=== PATIENT | female | born 1950 | race Caucasian/White ===

== ENCOUNTER → 2020-04-09 09:42 | Outpatient (CLI) | payer OTHER, SELFPAY ==
[2020-04-09 10:36] LABS: COVID19 -Nasal RAPID Negative (Negative)
== END ==
PROVIDERS: PCP Family Medicine; Visit Provider Nurse Practitioner Family
DX: Z20.822 Contact with and (suspected) exposure to COVID-19 (principal)
CPT/HCPCS: 87635

== ENCOUNTER 2020-04-10 06:04 | Inpatient (IN) | payer OTHER, SELFPAY ==
[2020-04-10] VITALS (22 sets, daily range): BP systolic 115–170; BP diastolic 49–85; PULSE 72–89; RESP 12–26; TEMP 36.2–37.7; O2SAT 91–98; BMI 46.0
--- NOTE | 2020-04-10 06:37 | DI.RAD.S_ITS ---
PROCEDURE: XR SHOULDER RT MIN 2V INDICATIONS: post op films TECHNIQUE: 2 views of the shoulder were acquired. COMPARISON: [facility], CT, CT SHOULDER RIGHT WITHOUT CONTRAST, 02/21/2020, 15:25. FINDINGS: Bones: Expected alignment status post placement of right shoulder arthroplasty. No periprosthetic fractures or evidence of loosening/infection. Mild acromioclavicular joint degeneration redemonstrated. Soft tissues: No suspicious soft tissue calcifications. IMPRESSION: Expected immediate postoperative appearance and alignment of right shoulder arthroplasty. Dictated by: Bjorn JOHNSON Interpreted: Remington Morgan MD on 04/10/2020 at 11:01 Approved by: Remington Morgan M.D. on 04/10/2020 at 12:23
[2020-04-10] MEDS: LACTATED RINGERS 1,000 ML 42 ML IV (07:20)
[2020-04-10] MEDS: VANCOMYCIN 1,000 MG/200 ML PIGGYBACK 200 MG IV ×2 (07:25→23:39)
[2020-04-10] MEDS: ACETAMINOPHEN 325 MG TABLET 975 MG PO ×2 (07:35→20:24)
--- NOTE | 2020-04-10 07:37 | PM.PREOP ---
Pre-operative Note COVID-19 COVID-19 status: Negative Result date/Date tested (Pos, Neg/Pending): 04/07/20 Interval Note History & Physical reviewed/Exam performed by Physician: Yes Changes to H&P: No
[2020-04-10] MEDS: MIDAZOLAM 2 MG/2 ML VIAL IV (07:48)
--- NOTE | 2020-04-10 07:56 | SUR.PREOP ---
Block start time [0745] . Monitoring initiated and maintained throughout procedure. Oxygen and medications given per anesthesiologist instructions. Patient remained stable throughout procedure, no adverse reactions noted. Block end time [0752].
[2020-04-10] MEDS: GENTAMICIN 200 MG in SODIUM CHLORIDE 0.9% 100 ML 105 ML IV (08:20)
--- NOTE | 2020-04-10 08:32 | SUR.OPER ---
Beach chair with Skytron shoulder positioner. Lower body on padded OR bed. Head in foam padded head cradle, secured with straps. Non-operative arm secured <90 degrees abduction. Pillow under knees. Safety belt at thigh. Cloth tape over blanket over lower legs.
[2020-04-10] MEDS: LIDOCAINE 1% W/EPI 20 ML INJ (08:38)
[2020-04-10] MEDS: BUPIVACAINE 0.25% W/ EPI 30 ML VIAL INJ (09:55)
--- NOTE | 2020-04-10 10:12 | PM.OP.1 ---
Operative Date/Time/Diagnoses Date of procedure: 04/10/20 Time of procedure: 08:00 Pre-op diagnosis: Right glenohumeral joint end-stage arthritis Post-op diagnosis: same Procedure & Clinicians Procedure: Right total shoulder arthroplasty Same procedure as scheduled: Yes Indications: Right glenohumeral joint end-stage arthritis Surgeon: Sam Orellana Model Maker Apprentice: Zakiya Hinton Click Yes if Unassisted: No Anesthesia Type: General and Peripheral nerve block Operative Notes Findings: End-stage arthritic changes to the glenohumeral joint with significant large osteophytes particularly anteriorly and inferiorly. Anterior osteophytes were blocking range of motion and locking external rotation. More significant arthritic changes to the humeral head than the glenoid. No sign of any rotator cuff tears. Closure Type: primary Specimen(s): none sent Applied: implant(s) (Arthrex 8 mm stem with a large glenoid and a 52 x 20 humeral head) Estimated Blood Loss (mL): 100 Blood products transfused: none Procedure in detail: On date of service, Patient was met in the holding area. The operative site was signed and witnessed by the OR staff. The surgeries once again discussed with the patient and any remaining questions they had were answered fully. Patient was taken back to the operating theater and placed on the operating table in a supine position. Great care was taken to ensure that all bony prominences were properly padded. Patient was then placed into the beach chair position. The head and neck were properly positioned and secured. A timeout was performed verifying patient's name, procedure, and the operative site. The upper extremity was then prepped and draped in the normal sterile fashion. Previously, the bony anatomy and incision were marked out as well as injected with Marcaine with epinephrine. A deltopectoral approach was performed. 10 blade was used to incise the skin and fascial tissue. A deep knife was used to continue sharp dissection until the cephalic vein was visualized. The cephalic vein was dissected free allowing us to expose the deltopectoral interval. This interval was then developed. A Ramirez elevator was used to free up the deltoid of any scarring both superficially as well as deeply. The vein and the deltoid were taken laterally while the pectoralis was taken medially. This gave us good visualization of the strap muscles. The clavipectoral fascia was removed and the strap muscles were then retracted medially with the pectoralis. This gave us stabilization of the subscapularis. The circumflex vessels were ligated and the subscapularis was sharply excised off the lesser tuberosity and then tagged. Once the subscapularis was released we're able to dislocate the shoulder. Patient had end-stage arthritic changes to the humeral head as well as the glenoid with large osteophytes anterior inferiorly as well as posteriorly. A Ronger was then used to remove the osteophytes. Next, cutting guide was placed and a saw was used to remove the humeral head. Once the head was removed it was templated. A starting awl was then used to find the canal and then the humerus was reamed and broached. Trial stem was placed and a variety of heads were trialed. A protector placed for the osteotomy was then placed and and we turned our attention back to the subscapularis as well as the glenoid. The subscapularis was freed up and a 360? fashion. The degenerative anterior and inferior capsular tissue was removed. This was followed by removing the degenerative labral tissue from around the glenoid as well as the biceps insertion. This gave us good visualization of the glenoid. Glenoid trials were used until we found the appropriate fit and curvature. Next the center hole was drilled followed by reaming of the glenoid. The wound was copiously irrigated after reaming. Next the pegs were drilled and a trial glenoid was impacted into place. Once we were satisfied with the preparation of the glenoid, the final component was cemented into place. This was followed by impaction. We Return to our attention back to the humerus. The protector plate was removed and heads were trialed once again and so we found the appropriate fit. The trials were removed and bone tunnels were made into the humeral neck. #2 FiberWire were passed through the bone tunnels for eventual subscapularis repair. The final stem and head were impacted into place and the shoulder was reduced. It was taken through range of motion and was felt to be stable in both posterior translation as well as external and internal rotation with abduction. The subscapularis was repaired back to the lesser tuberosity through the bone tunnels. This was then reinforced with soft tissue repair. Part of the rotator interval was then closed. A drain was placed and the rest of the wound was closed in a layered fashion. The shoulder was then cleaned dried and dressed and the patient was taken to the PACU in stable condition. Patient will follow our postoperative protocol for total shoulder arthroplasty. Complications: none Post-operative Condition: stable Disposition: PACU Plan for aftercare: Patient follow-up postoperative protocol for total shoulder arthroplasty
[2020-04-10] MEDS: OXYCODONE IR 5 MG TABLET PO ×4 (10:48→21:21)
[2020-04-10] MEDS: hydrOXYzine 50 MG/ML INJ 25 MG IM (10:49)
[2020-04-10] MEDS: INSULIN REGULAR 100 UNIT/ML 3 ML VIAL SUBCUT (11:43)
[2020-04-10] MEDS: METOCLOPRAMIDE 10 MG/2 ML INJ IV (12:13)
[2020-04-10] MEDS: LACTATED RINGERS 1,000 ML 125 ML IV (12:13)
[2020-04-10] MEDS: HYDROMORPHONE 0.5 MG INJ 0.2 MG IV ×2 (12:41→20:43)
--- NOTE | 2020-04-10 13:40 | PC.NURSE ---
Patient to room at 1200, alert, oriented rates pain to right shoulder 5/10, given 0.2mg IVP Dilaudid. CMS+ to RUE, sling in place, hemovac compressed. Patient also c/o nausea, no emesis. Given 10mg IVP Reglan. One person assist to BSC, gait steady denies dizziness, voided 500cc clear yellow urine. Patient oriented to room and call light, placed CPAP on, sats 90%, RT called and hooked up 2L oxygen bleed in, sats 92-93%.
--- NOTE | 2020-04-10 13:49 | P.PCN_ITS ---
Procedures Date/Time Date of procedure: 04/10/20 Time of procedure: 07:45 Nerve Block Time out performed: Yes Local anesthetic used: other (15mL 0.5opivacaine, 5mL 2* idocaine) Location of anesthetic used: interscalene Amount of anesthesia used (mL): 20 Nerve blocks: brachial plexus (interscalene) Procedure successful: Yes Patient tolerated procedure: well Complications: none Additional comments: Brachial plexus nerve block for post operative pain management. Risks and benefits discussed, including bleeding, infection, intravascular injection, nerve damage, block failure. Standard ASA monitors, NC O2. Pt supine. Chloroprep site preparation, sterile technique. Brachial plexus identified with US guidance, traced from supraclavicular to interscalene. 1mL 2% lidocaine skin wheal. 22g x 50mm Pajunk advanced with in-plane US guidance to brachial plexus. Negative aspiration. LA injected with intermittent negative aspiration. Good LA spread noted on US. No pain, no paraesthesia. Pt tolerated procedure well. Vital signs stable.
--- NOTE | 2020-04-10 16:06 | PT.IPTN ---
Current Diagnoses Obesity, unspecified (04/10/20) Sleep apnea, unspecified (04/10/20) Primary osteoarthritis, right shoulder (04/10/20) Surgery Performed Operation Date: 04/10/20 07:45 Actual Procedures p Total Shoulder Arthroplasty(Right) - Sam Orellana MD Physical Therapy Treatment Note M3 PT-IP Subjective Start: 04/10/20 15:56 Freq: NEEDED Status: Active Protocol: Document 04/10/20 15:56 AB (Rec: 04/10/20 16:06 AB [id number]) Subjective Physical Therapy Visit Type Type Patient Refusal Notes checked on pt and pt refused PT. stated that she is tired and has increase pain. stated that pain scale is 3/10. nurse already gave pt pain meds. daughter in room and does not want pt to do PT. agreed for PT to get PLOF and home set up info and agreed for PT to check back later on. Checked back on pt after ~ 2 hours, daughter does not want PT to wake pt up. will f/u tomorrow.
[2020-04-10] MEDS: INSULIN ASPART 100 UNIT/ML INSULN PEN SUBCUT ×2 (16:57→21:02)
[2020-04-10] MEDS: METFORMIN HCL 500 MG TABLET PO (20:43)
[2020-04-10] MEDS: DOCUSATE 100 MG CAPSULE PO (20:43)
[2020-04-10] MEDS: MAGNESIUM HYDROXIDE 30 ML UDC PO (20:46)
[2020-04-11] MEDS: OXYCODONE IR 5 MG TABLET PO ×2 (01:21→04:39)
[2020-04-11] MEDS: LACTATED RINGERS 1,000 ML 125 ML IV (01:25)
--- NOTE | 2020-04-11 01:36 | PC.NURSE ---
Addendum entered by Gisele Munroe R.N. 04/11/20 06:43: correction to previous note: patient is on CPAP w/2L/min oxygen bled in. Original Note: Patient seen/assessed at 2348. Is alert and oriented. Breath sounds CTA with sat of 96%; using home CPAP. HRR. Denies nausea. BT present and is passing flatus. Up to bathroom with 1 assist; denies dysuria, frequency or urgency with urination. Aquacel dressing to right shoulder is CDI as is ABD pad in axilla. Hemovac is intact and compressed. Right arm is in sling. CMS is intact. Fingers are puffy. Stated pain only 2/10 and declined pain medication at that time so was given ice pack for comfort. Now patient awake and states pain is 4/10 so medicated with Oxycodone and ice applied. Wearing bilateral calf SCD's. Fall risk score is moderate but daughter in room and both verbalize understanding to call staff when needing to get out of bed so alarm is not activated.
[2020-04-11 05:00] VITALS: BP 155/70; PULSE 88; RESP 18; TEMP 36.8; O2SAT 96
[2020-04-11 05:14] LABS: Hematocrit 35.4 % (36-46); Hemoglobin 11.7 g/dL (12.0-16.0); Mean Corpuscular HGB Conc 33.2 % (30-36); Mean Corpuscular Volume 87.4 fL (80-100); Platelet Count 215 X10^3/uL (150-400); Red Blood Cell Count 4.05 X10^6/uL (4.0-5.2); Red Cell Distribution Width 14.3 % (11.6-14.8); White Blood Cell Count 11.7 X10^3/uL (4.5-11.0)
--- NOTE | 2020-04-11 07:35 | P.PN_ITS ---
Subjective Subjective Date Patient Seen: 04/11/20 Time Patient Seen: 07:35 Interval history: Pain mild at rest. Pain severe with any movement. Denies fever chills. No nausea vomiting. Patient's is home but recovering from a fracture in his leg and has limited ability to assist patient home. Patient has 3 daughters all who work and will also have limited availability to assist her at home. Exam Vital Signs (past 8 hours): - 04/10/20 23:56 04/11/20 05:00 Temperature 98.4 F 98.3 F Pulse Rate 76 88 Respiratory Rate 18 18 Blood Pressure 121/79 155/70 H Pulse Oximetry 96 96 Oxygen Delivery Method Nasal Cannula,CPAP Oxygen Flow Rate 2 Narrative Exam Narrative: 69-year-old female resting comfortably in bed in no apparent distress. Right shoulder dressing is clean, dry and intact. Drain output 150 mL yesterday. Sensation grossly intact light touch distal right upper extremi ty. Motor functions intact distal right upper extremity. Right hand is warm and dry. Objective Labs Result Diagrams: 04/11/20 04:40 Labs: Laboratory Results - last 24 hr 04/11/20 04:40 WBC 11.7 H RBC 4.05 Hgb 11.7 L Hct 35.4 L MCV 87.4 MCH 29.0 MCHC 33.2 RDW 14.3 Plt Count 215 PFSH Medical History Acid reflux Diabetes mellitus Hypertension Obesity Sleep apnea Surgical History H/O arthroscopy of left knee History of bilateral tubal ligation History of cholecystectomy History of hysterectomy History of tonsillectomy Social History household members: spouse Smoking Status: Never smoker alcohol intake: never Assessment & Plan Post-op Postoperative Procedures: Procedures Operation Date: 04/10/20 07:45 Actual Procedures Side Surgeon p Total Shoulder Arthroplasty Right Sam Orellana MD Postop day 1 status post right shoulder arthroplasty. Patient progressing as expected. Change her Tylenol to scheduled for better pain control. Increase oxycodone for better pain control. Likely discharge home today after physical therapy. On postop protocol for total shoulder arthroplasty.
[2020-04-11 08:00] VITALS: BP 125/65; PULSE 97; RESP 24; TEMP 37; O2SAT 95
[2020-04-11] MEDS: OXYCODONE IR 10 MG TABLET PO ×2 (08:10→12:19)
[2020-04-11] MEDS: ACETAMINOPHEN 325 MG TABLET 975 MG PO (08:12)
[2020-04-11] MEDS: INSULIN ASPART 100 UNIT/ML INSULN PEN SUBCUT ×2 (08:15→12:20)
[2020-04-11 08:16] VITALS: BP 125/65; PULSE 84
[2020-04-11] MEDS: lisinopriL 20 MG TABLET PO (08:16)
[2020-04-11] MEDS: hydroCHLOROthiazide 12.5 MG CAPSULE PO (08:17)
[2020-04-11] MEDS: DOCUSATE 100 MG CAPSULE PO (08:17)
[2020-04-11] MEDS: ATORVASTATIN 20 MG TABLET PO (08:17)
[2020-04-11] MEDS: METFORMIN HCL 500 MG TABLET PO (08:17)
--- NOTE | 2020-04-11 09:41 | PC.NURSE ---
Addendum entered by Elizabeth Garrison R.N. 04/11/20 13:53: All packed up, changed into personal clothing, nothing remaining in outlets, DC education provided, no questions remain, PIV removed and tolerated well. WC transfer to private vehicle. Original Note: AM Shift note. pt AO and receptive to care. Daughter, Jalyn, in room. left AC PIV saline locked after breakfast. pt up to BSC with FWW. Reporting pain with movement and improves with rest. Administered 10mg Oxycodone and 975mg Tylenol this morning for 5/10 pain which decreased to 2-3/10. CPAP with 2L at night. CBG this AM were 187 with 1 unit administered. Aquacel to right shoulder CDI and wearing sling. Denying nausea and states she feels steady on her feet with transfers. pt also reporting edema to right hand but able to move and has feeling to all fingers, strong pulse.
--- NOTE | 2020-04-11 10:06 | PT.IIE ---
Current Diagnoses Obesity, unspecified (04/10/20) Sleep apnea, unspecified (04/10/20) Primary osteoarthritis, right shoulder (04/10/20) Surgery Performed Operation Date: 04/10/20 07:45 Actual Procedures p Total Shoulder Arthroplasty(Right) - Sam Orellana MD Surgical History (Last Reviewed 04/11/20 @ 07:37 by Yonis Bernal PA-C) H/O arthroscopy of left knee History of bilateral tubal ligation History of cholecystectomy History of hysterectomy History of tonsillectomy Medical History (Last Reviewed 04/11/20 @ 07:37 by Yonis Bernal PA-C) Acid reflux Diabetes mellitus Hypertension Obesity Sleep apnea Physical Therapy Inpatient Evaluation/Re-Eval M1 PT/OT-IP Prior Functional Status Start: 04/10/20 15:56 Freq: NEEDED Status: Active Protocol: Document 04/11/20 10:06 AB (Rec: 04/11/20 11:50 AB [email or web address]) Medical Review Prior Functional Status Medical History Reviewed Yes Communication able to make needs known Mobility and Gait pt stated that she is modified independent with all mobilities without AD but is limited due to pain Social History Household Members spouse Living Arrangements House Number of Floors (Floors) One Floor Number of Stairs To Enter/Railing? ramp to enter Home Environment Standard Height Toilet,Tub/ Shower Home Equipment Straight Cane,Tub Transfer Bench,Hand Held Shower,Grab Bars Near Toilet,Grab Bars In Shower Additional Social History Comment daughter stated that spouse will not be able to assist physically since spouse is still recovering from a hip surgery; stated that pt will have assistance for the pt between herself and her other sister M2 PT-IP Current Condition Start: 04/10/20 15:56 Freq: NEEDED Status: Active Protocol: Document 04/11/20 10:06 AB (Rec: 04/11/20 11:50 AB [id number]) Physical Therapy Current Condition Current Condition Evaluation Date 04/11/20 Treatment Diagnosis s/p R TSA; difficulty in walking Onset Date 04/10/20 Precautions Shoulder Precautions Sling,PROM,Internal Rotation to Body,No External Rotation, No Abduction,Forward Flexion to 90 degrees,Pendulums Weight Bearing Status Weight Bearing Status Non-Weight Bearing Allowed Weight Bearing Amount (enter % NWB RUE or #) (%) M3 PT-IP Subjective Start: 04/10/20 15:56 Freq: NEEDED Status: Active Protocol: Document 04/11/20 10:06 AB (Rec: 04/11/20 11:50 AB [id number]) Subjective Physical Therapy Visit Type Type Initial Evaluation Visit Start Time 10:06 Visit Stop Time 11:10 Total Visit Minutes 64 Number of FILM LOADER Visits 0 Physical Therapy Visit Comments Patient Comments pt is agreeable to do PT Therapy Pain Assessment Pain When Pain Assessed At Rest Pain Present Pain Present Pain Reported Location Right Shoulder Intensity 3 Scale Used Numeric (0 - 10) Pain Management Techniques Modification of Treatment,Re- positioning,Timing of Activity with Medications M4 PT-IP Mobility and Gait Start: 04/10/20 15:56 Freq: NEEDED Status: Active Protocol: Document 04/11/20 10:06 AB (Rec: 04/11/20 11:50 AB [id number]) PT-Bed Mobility Assessment Supine to Sit Supine to Sit Maximum Assistance,1 Person Assistance Sit to Supine Sit to Supine Maximum Assistance,1 Person Assistance PT-Transfer Assessment Sit to and From Stand Sit to and from Stand Standby Assistance,1 Person Assistance Equipment Transfer Assistive Device Gait Belt Orthotic/Prosthetic Devices or Brace: Yes Comments Mobility Comments daughter in room and caregiver training conducted. educated pt and daughter regarding shoulder precautions, weight bearing, sling management, UE exercises. pt completed supine to sit max A and cues. daughter stated that she knows how to assist pt with bed mobility. pt sat on EOB. caregiver training for sling management conducted. daughter was able to don/doff sling on pt. demonstrated R elbow/wrist/hand exercises and pt was able to complete. attempted pendulum and pt able to assume position but unable to relax RUE to safety complete pendulum activity. educated pt on UB dressing with said position. pt and daughter acknowledged understanding. Pt ambulated in room without AD SBA ~ 40 ft . presents with antalgic waddling gait with increase lateral trunk lean to the R. no LOB. educated pt on safety and use of SPC for long distance outdoor mobility and agreed. completed gait training using SPC. pt completed with SBA but with cues provided. pt requires more training with SPC but pt plans to stay indoors for now and will have family with her when she goes outdoors. pt requested to go back to bed and completed sit to supine with daughter assisting and completed safely. positioned pt in bed. call light and table placed within reach. Gait Assessment Assistive Devices Assistive Device None,Gait Belt,Straight Cane Orthotic/Prosthetic Devices or Brace: Yes Gait Deviations General Gait Pattern Antalgic,Decreased Stride Length,Decreased Feet Clearance,Step-to Gait Factors Limiting Gait Function Factors Limiting Gait Function Decreased Activity Tolerance, Decreased Strength,Limited Range of Motion,Pain,Poor Balance,Poor Safety Awareness Comments Gait Comments pls refer to mobility section for details PT-Balance Assessment Sitting Balance and Reactions Static Sitting Balance Ability Good Dynamic Sitting Balance Ability Good Standing Balance and Reactions Static Standing Balance Ability Good Dynamic Standing Balance Ability Fair Device Used SPC M5 PT-IP Objective Assessments Start: 04/10/20 15:56 Freq: NEEDED Status: Active Protocol: Document 04/11/20 10:06 AB (Rec: 04/11/20 11:50 AB [id number]) Orientation Orientation/Cognition Level of Alertness Alert Orientation Name,Place,Situation Language Function Ability No Deficits Noted Safety Awareness Understands Safety Issues Memory Description No Deficits Noted Gross Range of Motion Lower Extremity ROM Assessment Within Functional Limits Strength Lower Extremity Strength Assessment Within Functional Limits Coordination Assessment Gross Coordination Gross Coordination WNL Sensation Assessment Sensation Gross Sensation WNL Muscle Tone Muscle Tone WNL Yes M6 PT-IP Treatment Start: 04/10/20 15:56 Freq: NEEDED Status: Active Protocol: Document 04/11/20 10:06 AB (Rec: 04/11/20 11:50 AB [id number]) Physical Therapy Treatment Exercises Exercises Shoulder Pendulums,Elbow Flexion/Extension,Wrist ROM, Hand ROM Education Education Provided Precautions,Weight Bearing Status,Post-Op Packet,Safety Brace Education [place],Patient, Caregiver Equipment Issued Equipment Type and Company pt provided with a bigger size sling due to sling on pt is too small and is not providing the right support for the pt. daughter signed document M7 PT-IP Assessment and Plan Start: 04/10/20 15:56 Freq: NEEDED Status: Active Protocol: Document 04/11/20 10:06 AB (Rec: 04/11/20 11:50 AB [email or web address]) PT Summary Assessment and Plan Potential Rehabilitation Potential Good Status of Condition at Evaluation Stable Summary Impairments Pain,ROM,Strength,Balance, Coordination,Bed Mobility, Transfers,Gait,Activity Tolerance Assessment Summary pt requiring SBA with mobility . caregiver training conducted and daughter is able to assist pt safely. pt plans to go home with family to assist her. pt will need outpt PT. pt may go home when medically stable. Goals Bed Mobility Goal Independent Transfer Goal Independent Gait Goal Independent Gait Distance 150 Days to Meet Goals 3 Frequency of Treatment Frequency Of Treatment Twice a Day Treatment Plan Physical Therapy Treatment Plan Bed Mobility Training,Transfer Training,Gait Training, Therapeutic Exercise,Balance Retraining,Post Op Education, Discharge Planning,Hot or Cold Pack,Neuromuscular Re-ed, Coordination Retraining,Manual Therapy Recommendations To Nursing Amount of Assist Needed Standby Assistance Discharge Recommendations PT Discharge Recommendations Home with Assistance, Outpatient PT Transportation Needs at Discharge Private Vehicle
--- NOTE | 2020-04-11 12:31 | P.DS_ITS ---
History of Present Illness History of Present Illness Date Patient Seen: 04/11/20 Time Patient Seen: 12:32 Chief complaint: RT TSA Narrative: Pain control improved. Patient did well with therapy and wishes to go home. Discharge Providers Provider Date of admission: 04/10/20 06:04 Discharge Date: 04/11/20 Primary care physician: Sam Killian MD Consults: 04/08/20 12:36 Consult to Respiratory Therapy Evaluate & Treat Comment: Will bring CPAP Physician Instructions: Evaluate and treat 04/10/20 10:04 Consult to Discharge Planning Routine Comment: Consult to Physical Therapy Evaluate & Treat Comment: Physician Instructions: Evaluate and Treat Consult to Respiratory Therapy Evaluate & Treat Comment: Physician Instructions: Evaluate and treat Discharge provider: Yonis Bernal PA-C Summary Hospital Course Discharge Diagnosis: Right glenohumeral joint end-stage arthritis Hospital Course: Right total shoulder arthroplasty Same procedure as scheduled: Yes Indications: Right glenohumeral joint end-stage arthritis Surgeon: Sam Orellana Client Service Manager: Zakiya Hinton Click Yes if Unassisted: No Anesthesia Type: General and Peripheral nerve block Operative Notes Findings: End-stage arthritic changes to the glenohumeral joint with significant large osteophytes particularly anteriorly and inferiorly. Anterior osteophytes were blocking range of motion and locking external rotation. More significant a rthritic changes to the humeral head than the glenoid. No sign of any rotator cuff tears. Closure Type: primary Specimen(s): none sent Applied: implant(s) (Arthrex 8 mm stem with a large glenoid and a 52 x 20 humeral head) Estimated Blood Loss (mL): 100 Blood products transfused: none Patient's pain control is improved. Discharge home today in stable condition. Status at Discharge Cognitive/behavioral status at discharge: at baseline, oriented Functional status at discharge: independent ambulation Overall status at discharge: patient is progressing back to baseline Time Spent with Patient Time spent: Less than 30 minutes Exam Vital Signs (past 8 hours): - 04/11/20 05:00 04/11/20 08:00 04/11/20 08:16 Temperature 98.3 F 98.6 F Pulse Rate 88 97 H 84 Respiratory Rate 18 24 Blood Pressure 155/70 H 125/65 125/65 Pulse Oximetry 96 95 Oxygen Delivery Method Nasal Cannula,CPAP Oxygen Flow Rate 0 Narrative Exam Narrative: See progress note Objective Labs Result Diagrams: 04/11/20 04:40 Labs: Laboratory Results - last 24 hr 04/11/20 04:40 WBC 11.7 H RBC 4.05 Hgb 11.7 L Hct 35.4 L MCV 87.4 MCH 29.0 MCHC 33.2 RDW 14.3 Plt Count 215 PFSH Medical History Acid reflux Diabetes mellitus Hypertension Obesity Sleep apnea Surgical History H/O arthroscopy of left knee History of bilateral tubal ligation History of cholecystectomy History of hysterectomy History of tonsillectomy Social History household members: spouse Smoking Status: Never smoker alcohol intake: never Discharge Assessment & Plan Assessment and Plan Assessment: Progressing as expected status post right total shoulder arthroplasty Plan of Treatment: DC home today in stable condition. Discharge Plan Discharge Plan Patient Disposition: Home Discharge orders & Medications Prescriptions: New acetaminophen 325 mg Tablet 975 mg PO TID Qty: 60 RF: 0 oxycodone 10 mg Tablet 10 mg PO Q4HR PRN (Reason: Pain, Severe (7-10)) Qty: 60 RF: 0 Continued metformin 500 mg Tablet 500 mg PO BID RF: 0 atorvastatin 20 mg Tablet 20 mg PO DAILY RF: 0 lisinopril 20 mg Tablet 20 mg PO DAILY RF: 0 hydrochlorothiazide 12.5 mg Tablet 12.5 - 25 mg PO DAILY RF: 0 diphenhydramine HCl 25 mg Tablet 50 mg PO BID PRN (Reason: allergies) RF: 0 acetaminophen [Tylenol] 325 mg Capsule 650 mg PO Q6H PRN (Reason: Pain (Scale Score 4-6)) RF: 0 Follow up/Referrals: Sam Killian MD [Primary Care Provider] - Sma Orellana MD [Physician] - (2 weeks) Diet/Activity/Treatments Diet: Diet as Tolerated Activity: ostoperative protocol for total shoulder arthroplasty Cold/Heat Therapy: ice as needed Skin/Wound/Dressing Care Report to your healthcare provider any signs of infection, such as:: chills, fever, increased pain, unusual drainage and unusual redness Dressing: keep clean and dry Visit Report/Discharge Packet Instructions: DI for Prescription Opioid Use, DI for Shoulder Replacement Stand Alone Forms: Surgery Discharge Discharge Data Primary Care Provider: Sam Killian
--- NOTE | 2020-04-11 13:03 | CM.DANOTE ---
Addendum entered by Alexandria Doe LPN 04/11/20 13:16: Met now with pt and her daughter Jalyn. Both confirm the home plan. Pt is wondering about [facility]. Her is home and has been non weightbearing for 6 weeks. He has had [facility] for much of that time and she reports it has been very helpful. Did explain that [facility] Bernal did not order this and is unclear, with pt's shoulder surgery, what the orthopedic surgeon will want. Asked about the OUTPT PT plan as per PT Nissa's recommendation. Pt reports that she is only supposed to followup at the orthopedic clinic. Recommended that pt and or Jalyn call the orthopedic clinic and ask if HH order would be appropriate. They can then followup with [facility]. Will alert [facility] re this as they may be able to assist with the process if HH is indicated. Original Note: Discharge Planning/Care Management DCP: assessment: case received, EMR reviewed and d/c to home order noted. PT Nissa did see pt and worked with her and her daughter for eval and caregiver training. Pt has been cleared for home setting with daughters to assist and spouse providing prn support. CM Discharge Assessment Start: 04/11/20 13:01 Freq: Status: Active Protocol: Document 04/11/20 13:02 ITV (Rec: 04/11/20 13:02 ITV [id number]) Discharge Planning Assessment Advance Directives? No History Provided By Medical Record Prior Living Arrangements House Household Members spouse Patient/Family Preference OP PT Therapy Pre-Anesthesia Assessment Start: 04/08/20 10:34 Freq: Status: Complete Protocol: Document 04/08/20 10:34 Shane (Rec: 04/08/20 10:44 [facility] [id number]) Pre-Anesthesia Assessment Preferred Name Cydney Patient Information Reviewed Via Chart Review,Phone Assessment Assessment Completed With Patient Diagnostic Results BMP/CMP,CBC,EKG,Other Comment A1c Primary Care Provider Sam Killian Medical Clearance Received Yes Seen Specialist in Last 12 Months Yes Specialist Seen Orthopedist Primary Language Dutch Gravity Manager Required No Height 160.02 cm Hearing Ability Normal Visual Impairment Partially Limited Visual Assist Glasses Dentition Type Teeth, Natural Present,Teeth, Missing Barriers to Learning Visual Other Aids No Hx Anesthesia Reactions No Hx Family Anesthesia Reaction No Hx Malignant Hyperthermia No Hx Blood Transfusions No Hx Blood Transfusion Reaction No Anesthesia Review Requested No 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 No Does patient have FORRESTER/SOB No Hx Sleep Apnea Yes CPAP/BIPAP use prescribed and used routinely Will Bring CPAP/BIPAP DOS Yes Currently Taking a Beta Agustin No Can You Climb a Flight of Stairs Without Yes: 'out of shape' SOB Hx Chest Pain No Hx SOB No Hx Syncope or Dizziness No Anti-Coagulant Therapy No Has a Unit Educator No Cardiac Testing No Hx Pacemaker/ICD No Pacemaker Rep Required? No Cardiac Clearance Received Not Applicable Diet Type At Home Regular dysphagia Yes: occasional choking Gastrointestinal Symptoms Reflux Urinary Catheter Present No Hx Urinary Self Catheterization No Diabetes Yes HgbA1C 6.9 Date 03/25/20 Patient No Lactating No Hx Drug Resistant Organism No Presence of External or Internal Medical No Devices Have you had any close contact with No someone diagnosed with COVID-19? Are you experiencing any of these No symptoms symptoms? Evaluation/Screening for possible COVID- Yes 19 infection completed? Marital Status Lives With spouse Prior Living Arrangements House Number of Floors (Floors) One Floor Number of Stairs To Enter/Railing? step in garage, 3-4 at entrance; ramp Support System Child/Children,Family,Spouse Does the Patient Have Assistance After Yes Surgery Patient Discharge Plan Description Return Home Comment spouse uses a walker Feels Safe in Current Environment Yes Been Physically Hurt or Threatened By a No Person in Current Environment Do you have thoughts of harming yourself None or others? Are you currently considering suicide? No Do you have a plan to hurt yourself or No Plan others? Do You Have Any Spiritual Beliefs That No May Affect Your HC Choices? Do You Have Any Cultural Practices That No May Affect Your HC Choices? Spiritual Referral LDS Who Can We Speak to About Patient's Care Friends & Family Identifying Code for Release of Patient declined Information Health Care Proxy/Next of Kin Daughters - Desiree Kelly Huggins; Jalyn Quijano Health Care Proxy ; [phone]; [phone] Emergency Contact Name Daughters - Kelly Balderas; Jalyn Quijano Emergency Contact ; [phone]; [phone] Advance Directives? No Requested Patient Bring Advanced No Directives DOS Power of Inspector Plumbing No PAC Instructions Assistance for 24 hours post- op,Diabetes instructions,Do not shave/clip surgical site, Medications to take/avoid, Nasal antibiotic,No ETOH/ petroleum product on skin DOS, NPO,Post-op transportation,Pre -op antibiotic,Pre-surgical wash,Sensory aids,Sturdy shoes /comfortable clothes,Do not bring valuables and remove jewelry
== END 2020-04-11 13:56 | disposition home or self-care (01) | DRG 483 ==
PROVIDERS: Admitting Provider Orthopaedic Surgery; PCP Family Medicine; Referring Provider Orthopaedic Surgery; Visit Provider Orthopaedic Surgery
PROC: 0RQJ0ZZ Repair Right Shoulder Joint, Open Approach (ICD-10-PCS; CPT 23472; principal; 2020-04-10 07:45)
DX: M19.011 Primary osteoarthritis, right shoulder (principal); Z68.42 Body mass index [BMI] 45.0-49.9, adult; G47.33 Obstructive sleep apnea (adult) (pediatric); E66.9 Obesity, unspecified; I10 Essential (primary) hypertension; E11.9 Type 2 diabetes mellitus without complications; Z20.822 Contact with and (suspected) exposure to COVID-19; Z79.84 Long term (current) use of oral hypoglycemic drugs
CPT/HCPCS: 36415; 64450; 73030; 82962; 85027; 87635; 97116; 97161; 97530; C1776; C9803; J0330; J1170; J2250; J2405; J2704; J2765; J3010; J3410